=== PATIENT | male | born 1945 | race Caucasian/White ===

== ENCOUNTER 2023-12-05 17:38 | Inpatient (IN) | payer BC ==
--- NOTE | 2023-12-05 19:00 | ED ---
Recheck HPI - General Chief Complaint: Recheck/Abnormal Lab/Rx Stated Complaint: Abn Labs Time Seen by Provider: 12/05/23 18:57 Source: patient, RN notes reviewed Mode of arrival: ambulatory Limitations: no limitations - History of Present Illness Initial Comments: 77-year-old male with history of hypertension presenting with abnormal labs/scan. Patient states earlier today done of his abdomen as well as lab work, he is unsure why his PCP ordered this. His BUN was 44 and his creatinine was 5.44. The CT scan revealed distended urinary bladder and bilateral hydronephrosis hydroureter secondary to distended urinary bladder. There were also bilateral renal cysts. They instructed him to come to the ER immediately. He denies any abdominal pain or urinary symptoms. He states he is urinating normally, last was 3 hours ago. - Related Data Home Medications Medication Instructions Recorded Confirmed Dorzolamide-Timol 2.23%/0.68% 1 drop RIGHT EYE BID 12/05/23 12/05/23 [Cosopt] Losartan Potassium [Cozaar] 100 mg PO DAILY 12/05/23 12/05/23 amLODIPine [Norvasc] 10 mg PO DAILY 12/05/23 12/05/23 Allergies Allergy/AdvReac Type Severity Reaction Status Date / Time No Known Allergies Allergy Verified 12/05/23 19:57 Review of Systems ROS Statement: Those systems with pertinent positive or pertinent negative responses have been documented in the HPI. ROS Other: All systems not noted in ROS Statement are negative. Past Medical History Past Medical History: Hypertension Past Surgical History: No Surgical Hx Reported Past Psychological History: No Psychological Hx Reported Smoking Status: Never smoker Past Alcohol Use History: None Reported Past Drug Use History: None Reported General Exam Limitations: no limitations General appearance: alert, in no apparent distress Head exam: Present: atraumatic, normocephalic, normal inspection Eye exam: Present: normal appearance, PERRL, EOMI. Absent: scleral icterus, con junctival injection, periorbital swelling ENT exam: Present: normal exam, mucous membranes moist Neck exam: Present: normal inspection. Absent: tenderness, meningismus, lymphadenopathy Respiratory exam: Present: normal lung sounds bilaterally. Absent: respiratory distress, wheezes, rales, rhonchi, stridor Cardiovascular Exam: Present: regular rate, normal rhythm, normal heart sounds. Absent: systolic murmur, diastolic murmur, rubs, gallop, clicks GI/Abdominal exam: Present: soft, normal bowel sounds. Absent: distended, tenderness, guarding, rebound, rigid Back exam: Present: normal inspection. Absent: CVA tenderness (R), CVA tenderness (L) Neurological exam: Present: alert Psychiatric exam: Present: normal affect, normal mood Skin exam: Present: warm, dry, intact, normal color. Absent: rash Course Vital Signs 12/05/23 17:51 Temperature 97.6 F Pulse Rate 85 Respiratory 18 Rate Blood Pressure 146/85 O2 Sat by Pulse 100 Oximetry Medical Decision Making - Medical Decision Making Was pt. sent in by a medical professional or institution (, PA, MONTESSORI TEACHER, urgent care, hospital, or group home...) When possible be specific @ -Sent by PCP for elevated kidney labs Did you speak to anyone other than the patient for history (EMS, parent, family, police, friend...)? What history was obtained from this source @ -No Did you review nursing and triage notes (agree or disagree)? Why? @ -I reviewed and agree with nursing and triage notes Were old charts reviewed (outside hosp., previous admission, EMS record, old EKG, old radiological studies, urgent care reports/EKG's, group home records)? Report findings @ -CT scan from earlier today reviewed and revealed markedly distended urinary bladder with bilateral hydronephrosis and hydroureter ureter secondary to distended urinary bladder. Enlarged prostate gland. Bilateral renal cysts. S mall gallstone Differential Diagnosis (chest pain, altered mental status, abdominal pain women, abdominal pain men, vaginal bleeding, weakness, fever, dyspnea, syncope, headache, dizziness, GI bleed, back pain, seizure, CVA, palpatations, mental health, musculoskeletal)? @ -Acute renal failure, urinary tract obstruction, dehydration, thrombus, BPH EKG interpreted by me (3pts min.). @ -None X-rays interpreted by me (1pt min.). @ -None done CT interpreted by me (1pt min.). @ -None done U/S interpreted by me (1pt. min.). @ -None done What testing was considered but not performed or refused? (CT, X-rays, U/S, labs)? Why? @ -None What meds were considered but not given or refused? Why? @ -None Did you discuss the management of the patient with other professionals (professionals i.e. , PA, MONTESSORI TEACHER, lab, RT, psych nurse, forensic social worker, ruby on rails web developer, teacher, chief innovation officer, returned case inspector)? Give summary @ -Discussed with Dr. Zhu from [facility] who accepts admission at this time for acute renal failure with consultation to nephrology services Was smoking cessation discussed for >3mins.? @ -No Was critical care preformed (if so, how long)? @ -No Were there social determinants of health that impacted care today? How? (Homelessness, low income, unemployed, alcoholism, drug addiction, transportation, low edu. Level, literacy, decrease access to med. care, fpc, rehab)? @ -No Was there de-escalation of care discussed even if they declined (Discuss DNR or withdrawal of care, Hospice)? DNR status @ -No What co-morbidities impacted this encounter? (DM, HTN, Smoking, COPD, CAD, Cancer, CVA, ARF, Chemo, Hep., AIDS, mental health diagnosis, sleep apnea, morbid obesity)? @ -None Was patient admitted / discharged? Hospital course, mention meds given and route, prescriptions, significant lab abnormalities, going to OR and other pertinent info. @ -Patient was admitted. Patient was seen and evaluated for abnormal labs-by PCP for elevated kidney labs. Patient is currently asymptomatic. Lab work remarkable for elevated BUN of 44, elevated creatinine of 5.44. More catheter was placed. Case discussed with Dr. Pugh from [facility] who accepts admission at this time for acute renal failure with consultation to nephrology. Case discussed with Dr. Russell Undiagnosed new problem with uncertain prognosis? @ -No Drug Therapy requiring intensive monitoring for toxicity (Heparin, Nitro, Insulin, Cardizem)? @ -No Were any procedures done? @ -No Diagnosis/symptom? @ -Acute renal failure Acute, or Chronic, or Acute on Chronic? @ -Acute Uncomplicated (without systemic symptoms) or Complicated (systemic symptoms)? @ -Uncomplicated Side effects of treatment? @ -No Exacerbation, Progression, or Severe Exacerbation? @ -No Poses a threat to life or bodily function? How? (Chest pain, [place], [place], pneumonia, PE, COPD, DKA, ARF, appy, cholecystitis, CVA, Diverticulitis, Homicidal, Suicidal, threat to staff... and all critical care pts) @ -Yes - Lab Data Result diagrams: 12/05/23 19:31 12/05/23 19:31 Lab Results 12/05/23 12/05/23 12/05/23 Range/Units 19:31 19:31 19:31 WBC 7.5 (3.8-10.6) k/uL RBC 3.64 L (4.30-5.90) m/uL Hgb 11.1 L (13.0-17.5) gm/dL Hct 33.2 L (39.0-53.0) % MCV 91.1 (80.0-100.0) fL MCH 30.5 (25.0-35.0) pg MCHC 33.5 (31.0-37.0) g/dL RDW 13.0 (11.5-15.5) % Plt Count 245 (150-450) k/uL MPV 7.5 Neutrophils % 75 % Lymphocytes % 15 % Monocytes % 6 % Eosinophils % 4 % Basophils % 0 % Neutrophils # 5.6 (1.3-7.7) k/uL Lymphocytes # 1.1 (1.0-4.8) k/uL Monocytes # 0.4 (0-1.0) k/uL Eosinophils # 0.3 (0-0.7) k/uL Basophils # 0.0 (0-0.2) k/uL Sodium 141 (137-145) mmol/L Potassium 4.4 (3.5-5.1) mmol/L Chloride 111 H (98-107) mmol/L Carbon Dioxide 20 L (22-30) mmol/L Anion Gap 10 mmol/L BUN 44 H (9-20) mg/dL Creatinine 5.22 H (0.66-1.25) mg/dL Est GFR (CKD-EPI)AfAm 11 (>60 ml/min/1.73 sqM) Est GFR (CKD-EPI)NonAf 10 (>60 ml/min/1.73 sqM) Glucose 111 H (74-99) mg/dL POC Glucose (mg/dL) (70-110) mg/dL POC Glu Software Quality Automation Engineer ID Plasma Lactic Acid Yong 0.8 (0.7-2.0) mmol/L Calcium 9.3 (8.4-10.2) mg/dL Total Bilirubin 0.7 (0.2-1.3) mg/dL AST 22 (17-59) U/L ALT 15 (4-49) U/L Alkaline Phosphatase 75 (38-126) U/L Total Protein 7.3 (6.3-8.2) g/dL Albumin 4.4 (3.5-5.0) g/dL Urine Color Urine Appearance (Clear) Urine pH (5.0-8.0) Ur Specific [place] (1.001-1.035) Urine Protein (Negative) Urine Glucose (UA) (Negative) Urine Ketones (Negative) Urine Blood (Negative) Urine Nitrite (Negative) Urine Bilirubin (Negative) Urine Urobilinogen (<2.0) mg/dL Ur Leukocyte Esterase (Negative) 12/05/23 12/05/23 Range/Units 20:16 21:00 WBC (3.8-10.6) k/uL RBC (4.30-5.90) m/uL Hgb (13.0-17.5) gm/dL Hct (39.0-53.0) % MCV (80.0-100.0) fL MCH (25.0-35.0) pg MCHC (31.0-37.0) g/dL RDW (11.5-15.5) % Plt Count (150-450) k/uL MPV Neutrophils % % Lymphocytes % % Monocytes % % Eosinophils % % Basophils % % Neutrophils # (1.3-7.7) k/uL Lymphocytes # (1.0-4.8) k/uL Monocytes # (0-1.0) k/uL Eosinophils # (0-0.7) k/uL Basophils # (0-0.2) k/uL Sodium (137-145) mmol/L Potassium (3.5-5.1) mmol/L Chloride (98-107) mmol/L Carbon Dioxide (22-30) mmol/L Anion Gap mmol/L BUN (9-20) mg/dL Creatinine (0.66-1.25) mg/dL Est GFR (CKD-EPI)AfAm (>60 ml/min/1.73 sqM) Est GFR (CKD-EPI)NonAf (>60 ml/min/1.73 sqM) Glucose (74-99) mg/dL POC Glucose (mg/dL) 107 (70-110) mg/dL POC Glu Software Quality Automation Engineer ID Richard Delgado Plasma Lactic Acid Yong (0.7-2.0) mmol/L Calcium (8.4-10.2) mg/dL Total Bilirubin (0.2-1.3) mg/dL AST (17-59) U/L ALT (4-49) U/L Alkaline Phosphatase (38-126) U/L Total Protein (6.3-8.2) g/dL Albumin (3.5-5.0) g/dL Urine Color Colorless Urine Appearance Clear (Clear) Urine pH 6.0 (5.0-8.0) Ur Specific [place] 1.009 (1.001-1.035) Urine Protein Negative (Negative) Urine Glucose (UA) Negative (Negative) Urine Ketones Negative (Negative) Urine Blood Negative (Negative) Urine Nitrite Negative (Negative) Urine Bilirubin Negative (Negative) Urine Urobilinogen <2.0 (<2.0) mg/dL Ur Leukocyte Esterase Negative (Negative) Disposition Clinical Impression: Acute renal failure Disposition: ADMITTED IP TO THIS [facility] Time of Disposition: 21:34
[2023-12-05 19:45] LABS: Basophils % (A) 0 %; Eosinophils # (A) 0.3 k/uL (0-0.7); Eosinophils % (A) 4 %; HCT 33.2 % (39.0-53.0); HGB 11.1 gm/dL (13.0-17.5); Lymphocytes # (A) 1.1 k/uL (1.0-4.8); Lymphocytes % (A) 15 %; MCH 30.5 pg (25.0-35.0); MCHC 33.5 g/dL (31.0-37.0); MCV 91.1 fL (80.0-100.0); Mean Platelet Volume 7.5; Monocytes # (A) 0.4 k/uL (0-1.0); Monocytes % (A) 6 %; Neutrophils # (A) 5.6 k/uL (1.3-7.7); Neutrophils % (A) 75 %; Platelet Count 245 k/uL (150-450); RBC 3.64 m/uL (4.30-5.90); WBC 7.5 k/uL (3.8-10.6)
[2023-12-05 19:58] LABS: ALT 15 U/L (4-49); AST 22 U/L (17-59); African American GFR (CKD) 11 (>60 ml/min/1.73 sqM); Albumin 4.4 g/dL (3.5-5.0); Alkaline Phosphatase 75 U/L (38-126); Anion Gap 10 mmol/L; Blood Urea Nitrogen 44 mg/dL (9-20); Calcium 9.3 mg/dL (8.4-10.2); Carbon Dioxide 20 mmol/L (22-30); Chloride 111 mmol/L (98-107); Glucose 111 mg/dL (74-99); Non-African American GFR(CKD) 10 (>60 ml/min/1.73 sqM); Potassium 4.4 mmol/L (3.5-5.1); Sodium 141 mmol/L (137-145); Total Bilirubin 0.7 mg/dL (0.2-1.3); Total Protein 7.3 g/dL (6.3-8.2)
[2023-12-05 20:18] LABS: Glucose,Whole Blood 107 mg/dL (70-110)
[2023-12-05 21:21] LABS: Appearance,Urine Clear (Clear); Bilirubin,Urine Negative (Negative); Blood,Urine Negative (Negative); Color,Urine Colorless; Glucose,Urine (UA) Negative (Negative); Ketones,Urine Negative (Negative); Leukocyte Esterase,Urine Negative (Negative); Nitrite,Urine Negative (Negative); Protein,Urine Negative (Negative); Specific Gravity,Urine 1.009 (1.001-1.035); Urobilinogen,Urine <2.0 mg/dL (<2.0)
[2023-12-05] MEDS ORDERED: NALOXONE 0.4 MG/ML 1 ML VIAL IV PRN (21:29)
[2023-12-06 08:25] LABS: African American GFR (CKD) 13 (>60 ml/min/1.73 sqM); Anion Gap 10 mmol/L; Blood Urea Nitrogen 42 mg/dL (9-20); Calcium 9.4 mg/dL (8.4-10.2); Carbon Dioxide 18 mmol/L (22-30); Chloride 113 mmol/L (98-107); Glucose 105 mg/dL (74-99); Magnesium 1.8 mg/dL (1.6-2.3); Non-African American GFR(CKD) 11 (>60 ml/min/1.73 sqM); Potassium 4.6 mmol/L (3.5-5.1); Sodium 141 mmol/L (137-145)
--- NOTE | 2023-12-06 12:24 | P.NPCON ---
History of Present Illness - Reason for Consult acute renal failure - History of Present Illness Reason for consultation: Acute kidney injury History of present is: Patient is a 77-year-old male seen in renal consultation for acute kidney injury. Unknown baseline renal function. Patient's creatinine on admission was 5.22 and is 4.6 today. Patient states he had blood work done outpatient by his primary care physician and also CAT scan of his abdomen. CAT scan revealed distended urinary bladder and bilateral hydronephrosis. Bilateral renal cysts were also noted. Patient was subsequently advised to go to the hospital. He currently has a More catheter and hematuria is noted. Patient is nonoliguric. Patient has history of hypertension and was maintained on amlodipine and losartan outpatient. Denies history of diabetes. Denies history of coronary artery disease. No fever or chills. No vomiting or diarrhea. No chest pain or shortness of breath. Vital signs are stable. General: No acute distress. HEENT: Head exam is unremarkable. LUNGS: No audible rhonchi or wheezes. HEART: Rate and Rhythm are regular. ABDOMEN: Nontender. EXTREMITITES: No edema. Past Medical History Past Medical History: Hypertension History of Any Multi-Drug Resistant Organisms: None Reported Past Surgical History: No Surgical Hx Reported Past Psychological History: No Psychological Hx Reported Smoking Status: Never smoker Past Alcohol Use History: None Reported Past Drug Use History: None Reported Medications and Allergies Home Medications Medication Instructions Recorded Confirmed Type Dorzolamide-Timol 2.23%/0.68% 1 drop RIGHT EYE BID 12/05/23 12/05/23 History [Cosopt] Losartan Potassium [Cozaar] 100 mg PO DAILY 12/05/23 12/05/23 History amLODIPine [Norvasc] 10 mg PO DAILY 12/05/23 12/05/23 History Allergies Allergy/AdvReac Type Severity Reaction Status Date / Time No Known Allergies Allergy Verified 12/05/23 19:57 Physical Exam Vitals: Vital Signs Temp Pulse Pulse Resp BP BP Pulse Ox 12/06/23 08:43 98 F 89 17 138/80 98 12/06/23 08:23 18 141/82 97 12/06/23 02:00 71 14 129/77 97 12/06/23 00:00 78 18 144/80 12/05/23 22:00 68 16 145/77 99 12/05/23 20:00 70 16 150/81 99 12/05/23 17:51 97.6 F 85 18 146/85 100 Intake and Output 12/05/23 12/06/23 12/06/23 22:59 06:59 14:59 Output Total 2100 Balance -2099 Output: Urine 2100 Other: Voiding Method Indwelling Catheter Weight 77.111 kg 77.111 kg Results - Lab Results Most recent lab results Calcium 9.4 mg/dL (8.4-10.2) 12/06/23 07:32 Magnesium 1.8 mg/dL (1.6-2.3) 12/06/23 07:32 12/05/23 19:31 12/06/23 07:32 Assessment and Plan Plan: Assessment: 1. Acute kidney injury secondary to obstructive uropathy. Renal function improving. Creatinine 4.6 today. 2. Distended urinary bladder with bilateral hydronephrosis. Has More catheter. Urology consulted. 3. Benign hypertension. Stable. 4. Metabolic acidosis secondary to acute kidney injury. Plan: Start normal saline at 75 cc an hour. Add oral bicarb. Maintain More catheter. Add Flomax. Await urology recommendations. Avoid nephrotoxins. Thank you for the consultation. I will continue to follow the patient with you during his hospital stay.
[2023-12-06] MEDS: SODIUM CHLORIDE 0.9% 1,000 ML IV SCH (13:09)
[2023-12-06] MEDS: SODIUM BICARBONATE TAB 650 MG TAB PO SCH (13:10)
[2023-12-06] MEDS: TAMSULOSIN 0.4 MG CAP.ER.24H PO SCH (13:10)
--- NOTE | 2023-12-06 17:04 | P.HPIM ---
History of Present Illness H&P Date: 12/06/23 Chief Complaint: Acute renal failure 77-year-old male with history of hypertension presenting with abnormal labs/scan. Patient states earlier today done of his abdomen as well as lab work, he is unsure why his PCP ordered this. His BUN was 44 and his creatinine was 5.44. The CT scan revealed distended urinary bladder and bilateral hydronephrosis hydroureter secondary to distended urinary bladder. There were also bilateral renal cysts. They instructed him to come to the ER immediately. He denies any abdominal pain or urinary symptoms. He states he is urinating no rmally, last was 3 hours ago. Blood work completed in ED reveals a WBC of 7.5, hemoglobin of 11.1 and platelet count of 245, sodium 141, potassium 4.4, BUNs/creatinine of 40/5.22 and blood glucose of 111, lactic acid of 0.8, UA is unremarkable Review of Systems REVIEW OF SYSTEMS: CONSTITUTIONAL: No fever, no malaise, no fatigue. HEENT: No recent visual problems or hearing problems. Denied any sore throat. CARDIOVASCULAR: No chest pain, orthopnea, PND, no palpitations, no syncope. PULMONARY: No shortness of breath, no cough, no hemoptysis. GASTROINTESTINAL: No diarrhea, no nausea, no vomiting, no abdominal pain. NEUROLOGICAL: No headaches, no weakness, no numbness. HEMATOLOGICAL: Denies any bleeding or petechiae. GENITOURINARY: Denies any burning micturition, frequency, or urgency. MUSCULOSKELETAL/RHEUMATOLOGICAL: Denies any joint pain, swelling, or any muscle pain. ENDOCRINE: Denies any polyuria or polydipsia. The rest of the 14-point review of systems is negative. Past Medical History Past Medical History: Hypertension History of Any Multi-Drug Resistant Organisms: None Reported Past Surgical History: No Surgical Hx Reported Past Psychological History: No Psychological Hx Reported Smoking Status: Never smoker Past Alcohol Use History: None Reported Past Drug Use History: None Reported Medications and Allergies Home Medications Medication Instructions Recorded Confirmed Type Dorzolamide-Timol 2.23%/0.68% 1 drop RIGHT EYE BID 12/05/23 12/05/23 History [Cosopt] Losartan Potassium [Cozaar] 100 mg PO DAILY 12/05/23 12/05/23 History amLODIPine [Norvasc] 10 mg PO DAILY 12/05/23 12/05/23 History Allergies Allergy/AdvReac Type Severity Reaction Status Date / Time No Known Allergies Allergy Verified 12/05/23 19:57 Physical Exam Vitals: Vital Signs Temp Pulse Pulse Resp BP BP Pulse Ox 12/06/23 08:43 98 F 89 17 138/80 98 12/06/23 08:23 18 141/82 97 12/06/23 02:00 71 14 129/77 97 12/06/23 00:00 78 18 144/80 12/05/23 22:00 68 16 145/77 99 12/05/23 20:00 70 16 150/81 99 12/05/23 17:51 97.6 F 85 18 146/85 100 Intake and Output 12/05/23 12/06/23 12/06/23 22:59 06:59 14:59 Output Total 2100 Balance -2100 Output: Urine 2100 Other: Voiding Method Indwelling Catheter Weight 77.111 kg 77.111 kg General appearance: alert, in no apparent distress Head exam: Present: atraumatic, normocephalic, normal inspection Eye exam: Present: normal appearance, PERRL, EOMI. Absent: scleral icterus, conjunctival injection, periorbital swelling ENT exam: Present: normal exam, mucous membranes moist Neck exam: Present: normal inspection. Absent: tenderness, meningismus, lymphadenopathy Respiratory exam: Present: normal lung sounds bilaterally. Absent: respiratory distress, wheezes, rales, rhonchi, stridor Cardiovascular Exam: Present: regular rate, normal rhythm, normal heart sounds. Absent: systolic murmur, diastolic murmur, rubs, gallop, clicks GI/Abdominal exam: Present: soft, normal bowel sounds. Absent: distended, tenderness, guarding, rebound, rigid Back exam: Present: normal inspection. Absent: CVA tenderness (R), CVA tender ness (L) Neurological exam: Present: alert Psychiatric exam: Present: normal affect, normal mood Skin exam: Present: warm, dry, intact, normal color. Absent: rash Results CBC & Chem 7: 12/05/23 19:31 12/06/23 07:32 Labs: Abnormal Lab Results - Last 24 Hours (Table) 12/05/23 12/05/23 12/06/23 Range/Units 19:31 19:31 07:32 RBC 3.64 L (4.30-5.90) m/uL Hgb 11.1 L (13.0-17.5) gm/dL Hct 33.2 L (39.0-53.0) % Chloride 111 H 113 H (98-107) mmol/L Carbon Dioxide 20 L 18 L (22-30) mmol/L BUN 44 H 42 H (9-20) mg/dL Creatinine 5.22 H 4.60 H (0.66-1.25) mg/dL Glucose 111 H 105 H (74-99) mg/dL Thrombosis Risk Factor Assmnt - Choose All That Apply Any of the Below Risk Factors Present?: No Other Risk Factors: Yes Each Risk Factor Represents 3 Points: Age 75 years or older Other congenital or acquired thrombophilia - If yes, enter type in comment: No Thrombosis Risk Factor Assessment Total Risk Factor Score: 3 Thrombosis Risk Factor Assessment Level: Moderate Risk Assessment and Plan Assessment: 1. Acute renal failure secondary to obstructive uropathy --Creatinine at 4.6; patient has a More catheter in place -- Currently placed on IV fluids in form of normal saline at rate of 75 cc an hour; oral bicarb is added; monitor strict HORTENCIA's, daily weights, renal function electrolytes; avoid nephrotoxins and hypotension -Nephrology on board 2. Obstructive uropathy; hematuria -Patient has a More catheter in place draining bloody urine with intermittent clots -Currently not on anticoagulation therapy -Plan is to maintain More catheter and consult urology for further recommendations -Flomax 0.4 mg daily 3. Hypertension; amlodipine 10 mg daily chest pain resume; patient also takes losartan 100 mg daily which will be placed on hold given acute renal injury 4. Hematuria; likely traumatic insertion of More catheter versus other; urology has been consulted DVT prophylaxis; SCDs only given gross hematuria CODE STATUS; full code
[2023-12-06] MEDS: DORZOLAMIDE-TIMOLOL 2.23%/0.68 10ML BTL RIGHT EYE SCH (21:30)
[2023-12-07] MEDS: amLODIPine 10 MG TAB PO SCH (09:15)
[2023-12-07 09:39] LABS: BUN/Creat Ratio 11.26 Ratio (12.00-20.00); Blood Urea Nitrogen 42.8 mg/dL (9.0-27.0); Calcium 8.7 mg/dL (8.7-10.3); Carbon Dioxide 19.3 mmol/L (21.6-31.8); Chloride 109 mmol/L (96-109); Glucose 104 mg/dL (70-110); Magnesium 1.8 mg/dL (1.5-2.4); Potassium 4.3 mmol/L (3.5-5.5); Sodium 140 mmol/L (135-145)
[2023-12-07 09:41] LABS: Basophils # (A) 0.01 X 10*3/uL (0.00-0.10); Basophils % (A) 0.1 %; Eosinophils # (A) 0.13 X 10*3/uL (0.04-0.35); Eosinophils % (A) 1.7 %; HCT 27.9 % (39.6-50.0); HGB 9.4 g/dL (13.0-17.0); Lymphocytes # (A) 1.12 X 10*3/uL (0.90-5.00); Lymphocytes % (A) 14.7 %; MCH 30.4 pg (27.0-32.0); MCHC 33.7 g/dL (32.0-37.0); MCV 90.3 FL (80.0-97.0); Mean Platelet Volume 10.4 FL (9.5-12.2); Monocytes # (A) 0.62 X 10*3/uL (0.20-1.00); Monocytes % (A) 8.1 %; NRBC Per 100 WBC 0 X 10*3/uL (0.00-0.01); Neutrophils # (A) 5.72 X 10*3/uL (1.80-7.70); Platelet Count 199 X 10*3/uL (140-440); RBC 3.09 X 10*6/uL (4.40-5.60); RDW 12.8 % (11.5-14.5); WBC 7.63 X 10*3/uL (4.50-10.00)
--- NOTE | 2023-12-07 12:39 | P.PN ---
Subjective patient is seen for follow-up for acute kidney injury. Mostly obstructive uropathy with indwelling More catheter. Serum creatinine is down to 3.8 from 5.2 on initial admission. Patient wants to go home. He is currently maintained on IV fluids. 24 hour urine output at 1200 mL. Objective - Vital Signs Vital signs: Vital Signs Temp 97.9 F 12/07/23 07:29 Pulse 83 12/07/23 07:29 Resp 16 12/07/23 07:29 BP 146/72 12/07/23 07:29 Pulse Ox 98 12/07/23 07:29 FiO2 Intake & Output 12/06/23 12/07/23 12/07/23 18:59 06:59 18:59 Intake Total 750 Output Total 1200 1200 700 Balance -450 -1200 -700 Weight 77.111 kg Intake: Intake, IV Titration 750 Amount Sodium Chloride 0.9% 1, 750 000 ml @ 75 mls/hr IV . [id number] [facility] Rx#:[id number] Output: Urine 1200 1200 700 Uretheral (More) 1200 Other: Voiding Method Indwelling Catheter Indwelling Catheter Indwelling Catheter - Exam patient is awake, comfortable, no acute distress. Examination of the heart S1 and S2 Examination of the lungs bilateral breath sounds are heard Abdomen is soft nontender Examination lower extremity shows no significant edema ENVIRONMENTAL LAWYER exam grossly intact. - Labs CBC & Chem 7: 12/07/23 05:45 12/07/23 05:45 Labs: Abnormal Lab Results - Last 24 Hours (Table) 12/07/23 12/07/23 Range/Units 05:45 05:45 RBC 3.09 L (4.40-5.60) X 10*6/uL Hgb 9.4 L (13.0-17.0) g/dL Hct 27.9 L (39.6-50.0) % Carbon Dioxide 19.3 L (21.6-31.8) mmol/L BUN 42.8 H (9.0-27.0) mg/dL Creatinine 3.8 H (0.6-1.5) mg/dL Est GFR (CKD-EPI) 16 L (>=60) BUN/Creatinine Ratio 11.26 L (12.00-20.00) Ratio Assessment and Plan Assessment: 1. Acute kidney injury secondary to obstructive uropathy. Renal function improving. Creatinine 3.8 today. 2. Distended urinary bladder with bilateral hydronephrosis. Has More catheter. Urology on consult. 3. Benign hypertension. Stable. 4. Metabolic acidosis secondary to acute kidney injury. Plan: continue IV fluids. Continue with sodium bicarb. Patient can likely be discharged tomorrow.
[2023-12-07] MEDS: TAMSULOSIN 0.4 MG CAP.ER.24H PO SCH (20:02)
--- NOTE | 2023-12-07 21:58 | P.PN ---
Subjective Progress Note Date: 12/07/23 77-year-old male with history of hypertension presenting with abnormal labs/scan. Patient states earlier today done of his abdomen as well as lab work, he is unsure why his PCP ordered this. His BUN was 44 and his creatinine was 5.44. The CT scan revealed distended urinary bladder and bilateral hydrone phrosis hydroureter secondary to distended urinary bladder. There were also bilateral renal cysts. They instructed him to come to the ER immediately. He denies any abdominal pain or urinary symptoms. He states he is urinating normally, last was 3 hours ago. Blood work completed in ED reveals a WBC of 7.5, hemoglobin of 11.1 and platelet count of 245, sodium 141, potassium 4.4, BUNs/creatinine of 40/5.22 and blood glucose of 111, lactic acid of 0.8, UA is unremarkable Objective - Vital Signs Vital signs: Vital Signs Temp 97.9 F 12/07/23 07:29 Pulse 83 12/07/23 07:29 Resp 16 12/07/23 07:29 BP 146/72 12/07/23 07:29 Pulse Ox 98 12/07/23 07:29 FiO2 Intake & Output 12/06/23 12/07/23 12/07/23 18:59 06:59 18:59 Intake Total 750 Output Total 1200 1200 Balance -450 -1200 Weight 77.111 kg Intake: Intake, IV Titration 750 Amount Sodium Chloride 0.9% 1, 750 000 ml @ 75 mls/hr IV . [id number] [facility] Rx#:[id number] Output: Urine 1200 1200 Uretheral (More) 1200 Other: Voiding Method Indwelling Catheter Indwelling Catheter Indwelling Catheter - Exam General appearance: alert, in no apparent distress Head exam: Present: atraumatic, normocephalic, normal inspection Eye exam: Present: normal appearance, PERRL, EOMI. Absent: scleral icterus, conjunctival injection, periorbital swelling ENT exam: Present: normal exam, mucous membranes moist Neck exam: Present: normal inspection. Absent: tenderness, meningismus, lymphadenopathy Respiratory exam: Present: normal lung sounds bilaterally. Absent: respiratory distress, wheezes, rales, rhonchi, stridor Cardiovascular Exam: Present: regular rate, normal rhythm, normal heart sounds. Absent: systolic murmur, diastolic murmur, rubs, gallop, clicks GI/Abdominal exam: Present: soft, normal bowel sounds. Absent: distended, tend erness, guarding, rebound, rigid Back exam: Present: normal inspection. Absent: CVA tenderness (R), CVA tenderness (L) Neurological exam: Present: alert Psychiatric exam: Present: normal affect, normal mood Skin exam: Present: warm, dry, intact, normal color. Absent: rash - Labs CBC & Chem 7: 12/07/23 05:45 12/07/23 05:45 Labs: Abnormal Lab Results - Last 24 Hours (Table) 12/07/23 12/07/23 Range/Units 05:45 05:45 RBC 3.09 L (4.40-5.60) X 10*6/uL Hgb 9.4 L (13.0-17.0) g/dL Hct 27.9 L (39.6-50.0) % Carbon Dioxide 19.3 L (21.6-31.8) mmol/L BUN 42.8 H (9.0-27.0) mg/dL Creatinine 3.8 H (0.6-1.5) mg/dL Est GFR (CKD-EPI) 16 L (>=60) BUN/Creatinine Ratio 11.26 L (12.00-20.00) Ratio Assessment and Plan Assessment: 1. Acute renal failure secondary to obstructive uropathy --Creatinine at 4.6; patient has a More catheter in place -- Currently placed on IV fluids in form of normal saline at rate of 75 cc an hour; oral bicarb is added; monitor strict HORTENCIA's, daily weights, renal function electrolytes; avoid nephrotoxins and hypotension -Nephrology on board 2. Obstructive uropathy; hematuria -Patient has a More catheter in place draining bloody urine with intermittent clots -Currently not on anticoagulation therapy -Plan is to maintain More catheter and consult urology for further recommendations -Flomax 0.4 mg daily 3. Hypertension; amlodipine 10 mg daily chest pain resume; patient also takes losartan 100 mg daily which will be placed on hold given acute renal injury 4. Hematuria; likely traumatic insertion of More catheter versus other; urology has been consulted DVT prophylaxis; SCDs only given gross hematuria CODE STATUS; full code
--- NOTE | 2023-12-07 22:34 | P.GSCN ---
History of Present Illness Consult date: 12/07/23 Reason for Consult: This is a 77-year-old male admitted to the hospital with acute renal failure, his creatinine was at 5.2 on presentation, his baseline is unknown. He u nderwent CT abdomen and pelvis as an outpatient which was done at [facility] that showed evidence of bladder distention with bilateral hydronephrosis. No previous history of urinary retention. No previous history of UTIs or kidney stones. No previous surgeries. At baseline he indicates he voids to completion without any straining dysuria or gross hematuria, though he is a slight vague historian. In the ER bladder scan demonstrated volume of greater than 999 mL, subsequently a More catheter was placed with blood tinged urine, the catheter has been draining since admission without any problems. His creatinine has been trending down but this morning it was 3.8. Review of Systems - Constitutional Denies fever, Denies weight loss - EENT Ears, nose, mouth and throat: Denies dysphagia - Cardiovascular Denies chest pain, Denies shortness of breath - Genitourinary Reports urinary retention, Denies dysuria, Denies flank pain, Denies hematuria - Neurological Denies headaches, Denies syncope Past Medical History Past Medical History: Hypertension History of Any Multi-Drug Resistant Organisms: None Reported Past Surgical History: No Surgical Hx Reported Past Psychological History: No Psychological Hx Reported Smoking Status: Never smoker Past Alcohol Use History: None Reported Past Drug Use History: None Reported Medications and Allergies Home Medications Medication Instructions Recorded Confirmed Type Dorzolamide-Timol 2.23%/0.68% 1 drop RIGHT EYE BID 12/05/23 12/05/23 History [Cosopt] Losartan Potassium [Cozaar] 100 mg PO DAILY 12/05/23 12/05/23 History amLODIPine [Norvasc] 10 mg PO DAILY 12/05/23 12/05/23 History Allergies Allergy/AdvReac Type Severity Reaction Status Date / Time No Known Allergies Allergy Verified 12/05/23 19:57 Surgical - Exam Vital Signs Temp Pulse Resp BP Pulse Ox 97.6 F 85 18 146/85 100 12/05/23 17:51 12/05/23 17:51 12/05/23 17:51 12/05/23 17:51 12/05/23 17:51 - General no distress, no pain - Eyes normal ocular movement, no pale - ENT normal nares, normal mucosa - Respiratory normal expansion, normal respiratory effort - Abdomen Abdomen: soft, non tender, no distended - Psychiatric oriented to time, oriented to person, oriented to place Results - Labs 12/07/23 05:45 12/07/23 05:45 Abnormal Lab Results - Last 24 Hours (Table) 12/07/23 12/07/23 Range/Units 05:45 05:45 RBC 3.09 L (4.40-5.60) X 10*6/uL Hgb 9.4 L (13.0-17.0) g/dL Hct 27.9 L (39.6-50.0) % Carbon Dioxide 19.3 L (21.6-31.8) mmol/L BUN 42.8 H (9.0-27.0) mg/dL Creatinine 3.8 H (0.6-1.5) mg/dL Est GFR (CKD-EPI) 16 L (>=60) BUN/Creatinine Ratio 11.26 L (12.00-20.00) Ratio Diabetes panel 12/07/23 Range/Units 05:45 Sodium 140 (135-145) mmol/L Potassium 4.3 (3.5-5.5) mmol/L Chloride 109 (96-109) mmol/L Carbon Dioxide 19.3 L (21.6-31.8) mmol/L BUN 42.8 H (9.0-27.0) mg/dL Creatinine 3.8 H (0.6-1.5) mg/dL Glucose 104 (70-110) mg/dL Calcium 8.7 (8.7-10.3) mg/dL Calcium panel 12/07/23 Range/Units 05:45 Calcium 8.7 (8.7-10.3) mg/dL Pituitary panel 12/07/23 Range/Units 05:45 Sodium 140 (135-145) mmol/L Potassium 4.3 (3.5-5.5) mmol/L Chloride 109 (96-109) mmol/L Carbon Dioxide 19.3 L (21.6-31.8) mmol/L BUN 42.8 H (9.0-27.0) mg/dL Creatinine 3.8 H (0.6-1.5) mg/dL Glucose 104 (70-110) mg/dL Calcium 8.7 (8.7-10.3) mg/dL Adrenal panel 12/07/23 Range/Units 05:45 Sodium 140 (135-145) mmol/L Potassium 4.3 (3.5-5.5) mmol/L Chloride 109 (96-109) mmol/L Carbon Dioxide 19.3 L (21.6-31.8) mmol/L BUN 42.8 H (9.0-27.0) mg/dL Creatinine 3.8 H (0.6-1.5) mg/dL Glucose 104 (70-110) mg/dL Calcium 8.7 (8.7-10.3) mg/dL Assessment and Plan Assessment: This is a 77-year-old male admitted to the hospital with acute renal failure, patient had 1 L urinary retention and bilateral hydronephrosis secondary to bladder distention. Creatinine is trending down to 3.8 from 5.22 with More catheter decompression. Hydronephrosis is most likely secondary to bladder distention. At this point recommend continue to trend creatinine, patient will need to keep the More catheter for minimum of 2 weeks, he will be set up for outpatient cystoscopy and urodynamics. Recommend continuing Flomax twice daily for now
[2023-12-08 08:19] VITALS: BP 147/73; PULSE 94; RESP 18; TEMP 97.8
[2023-12-08 09:26] LABS: BUN/Creat Ratio 13.12 Ratio (12.00-20.00); Calcium 9.3 mg/dL (8.7-10.3); Carbon Dioxide 18.6 mmol/L (21.6-31.8); Chloride 109 mmol/L (96-109); Glucose 104 mg/dL (70-110); Potassium 4.1 mmol/L (3.5-5.5); Sodium 143 mmol/L (135-145)
[2023-12-08 09:34] LABS: Basophils # (A) 0.03 X 10*3/uL (0.00-0.10); Basophils % (A) 0.4 %; Eosinophils # (A) 0.11 X 10*3/uL (0.04-0.35); Eosinophils % (A) 1.3 %; HCT 29.2 % (39.6-50.0); HGB 9.9 g/dL (13.0-17.0); Lymphocytes % (A) 10.8 %; MCH 30.5 pg (27.0-32.0); MCHC 33.9 g/dL (32.0-37.0); MCV 89.8 FL (80.0-97.0); Mean Platelet Volume 10.6 FL (9.5-12.2); Monocytes # (A) 0.52 X 10*3/uL (0.20-1.00); Monocytes % (A) 6.2 %; NRBC Per 100 WBC 0 X 10*3/uL (0.00-0.01); Neutrophils # (A) 6.76 X 10*3/uL (1.80-7.70); Neutrophils % (A) 81.1 %; Platelet Count 197 X 10*3/uL (140-440); RBC 3.25 X 10*6/uL (4.40-5.60); RDW 12.6 % (11.5-14.5); WBC 8.34 X 10*3/uL (4.50-10.00)
--- NOTE | 2023-12-08 13:24 | P.PN ---
Subjective patient is seen for follow-up for acute kidney injury. Mostly obstructive uropathy with indwelling More catheter. Serum creatinine is down to 3.2 from 5.2 on initial admission. Patient wants to go home. He is currently maintained on IV fluids. 24 hour urine output at 2200 mL. Objective - Vital Signs Vital signs: Vital Signs Temp 97.8 F 12/08/23 07:45 Pulse 94 12/08/23 07:45 Resp 18 12/08/23 07:45 BP 147/73 12/08/23 07:45 Pulse Ox 99 12/08/23 07:45 FiO2 Intake & Output 12/07/23 12/08/23 12/08/23 18:59 06:59 18:59 Intake Total 900 Output Total 1600 600 700 Balance -700 -600 -700 Intake: Intake, IV Titration 900 Amount Sodium Chloride 0.9% 1, 900 000 ml @ 75 mls/hr IV . [id number] [facility] Rx#:[id number] Output: Urine 1600 600 700 Other: Voiding Method Indwelling Catheter Indwelling Catheter Indwelling Catheter # Bowel Movements 2 - Exam patient is awake, comfortable, no acute distress. 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 - Labs CBC & Chem 7: 12/08/23 05:09 12/08/23 05:09 Labs: Abnormal Lab Results - Last 24 Hours (Table) 12/08/23 12/08/23 Range/Units 05:09 05:09 RBC 3.25 L (4.40-5.60) X 10*6/uL Hgb 9.9 L (13.0-17.0) g/dL Hct 29.2 L (39.6-50.0) % Carbon Dioxide 18.6 L (21.6-31.8) mmol/L Anion Gap 15.40 H (4.00-12.00) mmol/L BUN 42.0 H (9.0-27.0) mg/dL Creatinine 3.2 H (0.6-1.5) mg/dL Est GFR (CKD-EPI) 19 L (>=60) Assessment and Plan Assessment: 1. Acute kidney injury secondary to obstructive uropathy. Renal function improving. Creatinine 3.2 today. 2. Distended urinary bladder with bilateral hydronephrosis. Has More catheter. Urology on consult. 3. Benign hypertension. Stable. 4. Metabolic acidosis secondary to acute kidney injury. Plan: patient can be discharged home. Continue with oral sodium bicarb. Follow-up with urology as outpatient.
== END 2023-12-08 14:59 | disposition home or self-care (01) | DRG 683 ==
LOC: EC 17:38 → 5NMEDONC 22:19
PROVIDERS: ADMIT Internal Medicine; ATTEND Internal Medicine
DX: N17.9 Acute kidney failure, unspecified (principal); E87.20 Acidosis, unspecified; I10 Essential (primary) hypertension; N13.30 Unspecified hydronephrosis; N28.1 Cyst of kidney, acquired; N40.0 Benign prostatic hyperplasia without lower urinary tract symptoms; R31.0 Gross hematuria; Z79.899 Other long term (current) drug therapy
CPT/HCPCS: 36415; 51702; 51798; 80048; 80053; 81003; 83605; 83735; 85025; 99285

== ENCOUNTER → 2023-12-27 | Outpatient (CLI) | payer MEDICARE ==
--- NOTE | 2023-12-27 13:08 | CT ---
EXAMINATION TYPE: CT abdomen pelvis wo con DATE OF EXAM: 12/27/2023 COMPARISON: None HISTORY: 78-year-old male N13.30, unspecified hydronephrosis CT DLP: 459.2 mGycm. Automated exposure control for dose reduction was used. TECHNIQUE: Contiguous axial scanning of the abdomen and pelvis without IV contrast. Coronal and sagit darron reconstructions performed. FINDINGS: Heart normal size with trace anterior basilar pericardial fluid. Prominent hazy dependent atelectasis in the lower lungs. No pleural effusion. Mildly lobulated cyst anterior left liver lobe measuring 1.6 cm. Gallbladder shows no abnormal disten tion but a 8 mm dependent gallstone. Noncontrast assessment of the adrenal glands, spleen with hilar splenule, and pancreas show no gross abnormality. Kidneys show bilateral renal cortical cysts measuring up to 2.4 cm on the right and 4.4 cm on the lef t. There are focal areas of lobulation in the right kidney measuring up to 2.8 cm, probable anatomic aroldo iation, refer to axial image 53. 3 six-month follow-up CT recommended to ensure stable appearance and exclude the possibility of an underlying solid lesion. No hydronephrosis is seen. A centrally locate d cyst may be present on the right measuring up to 1.8 cm. No dilated small bowel, free fluid, or free air. No mesenteric or retroperitoneal lymphadenopathy. Th ere is mild overall stool burden. Mildly redundant sigmoid colon. Possible focal fluid density thickening at the tip of the appendix measuring up to 1.6 cm, axial imag e 108. No acute symptoms here, short interval follow-up in 3 months recommended. Prostate gland markedly enlarged at 6.5 cm. There is pronounced circumferential bladder wall thickeni ng with perivesicular fat stranding and More catheter in place. No abnormal fluid collection in the pelvis or pelvic lymphadenopathy. Bones: Mild anterior wedging at T12 has a chronic appearance. Moderate to advanced hypertrophic facet arthropathy lower lumbar spine. IMPRESSION: 1. A More catheter is in place. No hydronephrosis seen. Bilateral renal cortical cysts measuring up to 4.4 cm. Cortical lobulation on the right measuring up to 2.8 cm probably persistent lobulat ion/anatomic variation. Three-month follow-up CT to ensure a stable appearance and exclude the possib ility of an underlying solid mass. 2. Severe circumferential bladder wall thickening with surrounding fat stranding. Possible combinati on of chronic bladder wall hypertrophy and cystitis. 3. Marked prostatomegaly at 6.5 cm wide. Correlate with symptoms and PSA values. 4. Possible focal 1.6 cm fluid density thickening at the tip of the appendix. If no localizing sympt oms that would suggest an early tip appendicitis, this area should also be reassessed at the 3 month follow-up to exclude pathology such as a small mucinous neoplasm of the appendix.
== END | disposition home or self-care (01) ==
LOC: RADCTMAIN 11:46
PROVIDERS: ATTEND Urology
DX: N13.30 Unspecified hydronephrosis (principal); N28.1 Cyst of kidney, acquired; N40.0 Benign prostatic hyperplasia without lower urinary tract symptoms
CPT/HCPCS: 74176

== ENCOUNTER 2024-02-13 05:34 | Day surgery (SDC) | payer MEDICARE ==
--- NOTE | 2024-02-11 09:15 | P.HPIHPCON ---
History of Present Illness H&P Date: 02/11/24 Chief Complaint: BPH This is a 78-year-old male with history of urinary retention secondary to 140 g prostate, has failed multiple trial voids. Discussed with him the option given the size of the prostate over robotic simple prostatectomy versus HoLEP, risk- benefit of each approach were discussed in detail, he agreed to proceed with a robotic simple prostatectomy, aware of the risk which includes but limited to bleeding infection, injury to the ureter. Aware of the risk of injury to nearby organs, urinary incontinence, erectile dysfunction and persistent retention. Risk of anesthesia was also discussed. He understood all the risk and agreed to proceed Consent for Procedure: I have explained the operation/procedure to the patient, including the risks, benefits, side effects, alternative therapies (including not receiving the proposed treatment or service), the likelihood of the patient achieving his/her goals, and potential recuperation problems for the procedure/sedation/analgesia, as well as any blood products, if indicated. I also explained to the patient the risks, benefits and side effects of the alternatives, as well as the risks related to not receiving the proposed procedure, care, treatment, or services. Past Medical History Past Medical History: Hypertension History of Any Multi-Drug Resistant Organisms: None Reported Past Surgical History: No Surgical Hx Reported Past Psychological History: No Psychological Hx Reported Smoking Status: Never smoker Past Alcohol Use History: None Reported Past Drug Use History: None Reported Medications and Allergies Home Medications Medication Instructions Recorded Confirmed Type RX: Dorzolamide-Timol 2.23%/0.68% 1 drop RIGHT EYE BID 12/05/23 12/05/23 History [Cosopt] RX: Losartan Potassium [Cozaar] 100 mg PO DAILY 12/05/23 12/05/23 History RX: amLODIPine [Norvasc] 10 mg PO DAILY 12/05/23 12/05/23 History RX: Sodium Bicarbonate Tab 650 mg PO BID #60 tab 12/08/23 Rx RX: Tamsulosin [Flomax] 0.4 mg PO BID #60 cap 12/08/23 Rx Allergies Allergy/AdvReac Type Severity Reaction Status Date / Time No Known Allergies Allergy Verified 12/05/23 19:57 Surgical - Exam - General no distress, no pain - Eyes normal ocular movement, no pale - ENT normal nares, normal mucosa - Respiratory normal expansion, normal respiratory effort - Abdomen Abdomen: soft, non tender - Psychiatric oriented to time, oriented to person, oriented to place Assessment and Plan Assessment: OR for robotic simple prostatectomy
[2024-02-13] MEDS: LACTATED RINGERS 1,000 ML IV SCH (06:44)
[2024-02-13] MEDS: ONDANSETRON 4 MG/2 ML VIAL IVP PRN (06:45)
[2024-02-13] MEDS: DEXAMETHASONE SOD PHOSPHATE 4 MG/ML 1 ML VIAL IVP STA (06:46)
[2024-02-13] MEDS: IV FLUID CONTINUATION 1,000 ML IV ONE ×2 (06:48)
[2024-02-13] MEDS: MIDAZOLAM 2 MG/2 ML VIAL IV ONE (07:06)
[2024-02-13] MEDS: fentaNYL (PF) 50 MCG/ML 2 ML AMP IVP STA (07:16)
[2024-02-13] MEDS: HEPARIN SODIUM,PORCINE 5,000 UNIT/ML 1 ML VIAL SQ PRN (07:20)
[2024-02-13] MEDS ORDERED: fentaNYL (PF) 50 MCG/ML 2 ML AMP ONE (07:45)
[2024-02-13] MEDS ORDERED: SODIUM CHLORIDE 0.9% (PF) 10 ML VIAL ONE (07:45)
[2024-02-13] MEDS ORDERED: NEOSTIGMINE 1 MG/ML 10 ML VIAL ONE (07:45)
[2024-02-13] MEDS ORDERED: HYDROmorphone (PF) 1 MG/ML ONE (07:45)
[2024-02-13] MEDS ORDERED: GLYCOPYRROLATE 0.2 MG/ML 2 ML VIAL ONE (07:45)
[2024-02-13] MEDS ORDERED: PROPOFOL 10 MG/ML 20 ML VIAL IV ONE (07:45)
[2024-02-13] MEDS ORDERED: ROPIVACAINE 5 MG/ML 30 ML VIAL ONE (07:45)
[2024-02-13] MEDS ORDERED: ROCURONIUM 10 MG/ML (5 ML VIAL) IV ONE (07:45)
[2024-02-13] MEDS ORDERED: SUCCINYLCHOLINE CHLORIDE 200 MG/10 ML VIAL IV ONE (07:45)
[2024-02-13] MEDS ORDERED: LIDOCAINE 1% INJ 10MG/ML (20 ML MDV) ONE (07:45)
[2024-02-13] MEDS ORDERED: PHENYLEPHRINE-0.9% NACL SYG 1,000 MCG/10 ML SYRINGE ONE (07:45)
[2024-02-13 07:48] LABS: African American GFR (CKD) 38 (>60 ml/min/1.73 sqM); Anion Gap 9 mmol/L; Blood Urea Nitrogen 21 mg/dL (9-20); Calcium 9.5 mg/dL (8.4-10.2); Carbon Dioxide 22 mmol/L (22-30); Chloride 112 mmol/L (98-107); Glucose 109 mg/dL (74-99); Non-African American GFR(CKD) 33 (>60 ml/min/1.73 sqM); Potassium 3.8 mmol/L (3.5-5.1); Sodium 143 mmol/L (137-145)
[2024-02-13 07:56] LABS: Appearance,Urine Turbid (Clear); Bacteria,Urine Occasional /hpf; Bilirubin,Urine Negative (Negative); Blood,Urine Large (Negative); Budding Yeast,Urine Many /hpf; Color,Urine Light Yellow; Glucose,Urine (UA) Negative (Negative); Ketones,Urine Negative (Negative); Leukocyte Esterase,Urine Large (Negative); Mucus,Urine Rare /hpf; Nitrite,Urine Positive (Negative); PH, Urine 5.5 (5.0-8.0); Protein,Urine Trace (Negative); RBC,Urine 16 /hpf (0-5); Specific Gravity,Urine 1.015 (1.001-1.035); Squamous Epithelial Cell,Urine 1 /hpf (0-4); Urobilinogen,Urine <2.0 mg/dL (<2.0); WBC,Urine 159 /hpf (0-5)
[2024-02-13] MEDS ORDERED: ONDANSETRON 4 MG/2 ML VIAL IVP PRN (07:57)
[2024-02-13] MEDS: BUPIVACAINE (PF) 0.25% 30 ML VIAL SQ ONE (08:00)
[2024-02-13 08:20] LABS: Basophils % (A) 0 %; Eosinophils # (A) 0.2 k/uL (0-0.7); Eosinophils % (A) 3 %; HCT 39.9 % (39.0-53.0); HGB 13.5 gm/dL (13.0-17.5); Lymphocytes # (A) 0.8 k/uL (1.0-4.8); Lymphocytes % (A) 13 %; MCH 31.2 pg (25.0-35.0); MCHC 33.9 g/dL (31.0-37.0); MCV 92.2 fL (80.0-100.0); Mean Platelet Volume 8.4; Monocytes # (A) 0.3 k/uL (0-1.0); Monocytes % (A) 5 %; Neutrophils # (A) 4.6 k/uL (1.3-7.7); Neutrophils % (A) 77 %; Platelet Count 175 k/uL (150-450); RBC 4.33 m/uL (4.30-5.90); RDW 13.3 % (11.5-15.5)
--- NOTE | 2024-02-13 10:58 | P.OP ---
Date of Procedure: 02/13/24 Preoperative Diagnosis: BPH, urinary retention Postoperative Diagnosis: Same Procedure(s) Performed: Robotic assisted laparoscopic simple prostatectomy Implants: None Anesthesia: LYNDA Surgeon: Sylvester Estrada Estimated Blood Loss (ml): 100 Pathology: other (Prostate adenoma) Condition: stable Disposition: PACU Indications for Procedure: This is a 78-year-old male with history of urinary retention secondary to 140 g prostate, has failed multiple trial voids. Discussed with him the option given the size of the prostate over robotic simple prostatectomy versus HoLEP, risk- benefit of each approach were discussed in detail, he agreed to proceed with a robotic simple prostatectomy, aware of the risk which includes but limited to bleeding infection, injury to the ureter. Aware of the risk of injury to nearby organs, urinary incontinence, erectile dysfunction and persistent retention. Risk of anesthesia was also discussed. He understood all the risk and agreed to proceed Description of Procedure: After preoperative antibiotics were started, the patient was taken to the operating room. Anesthesia was induced and the patient was placed in a supine position with adequate padding of the pressure points, shoulders, back, legs and arms. He was then prepped and draped in the standard fashion. A critical pause was performed using two patient identifiers. A 16F saavedra catheter was placed to gravity drainage. A pneumoperitoneum was obtained using a Veress needle, after pneumoperitoneum was obtained a 8 mm camera port was placed. Under direct vision a 8mm robotic ports was placed lateral to each rectus slightly below the camera port. The left iliac fossa 8mm port was placed. The right health education assistant right iliac fossa 12mm port and right paramedian 5mm portwere placed. After the patient was placed in the trendelenberg position, the robot was then docked to the 8mm robotic ports and then each robotic arm and tower was checked in relation to the patient's legs and hands to avoid inadvertent compression. The peritoneal cavity was inspected. Adhesions were taken down along the left lower quadrant An inverted U-shaped incision began laterally to the left medial umbilical ligament and extended high across the midline to the right umbilical ligament. The limbs of the "U" extended to the level of the vasa on both sides. We next developed the preperitoneal space and the space of Retzius. Cautery was used to dissected the bladder away from the prostate, the incision was made in close proximity to the prostate, and incision was extended laterally and at this point the plane between the adenoma and the surgical capsule is identified. Patient did have an enlarged median lobe with intravesical extension, both ureteral orifices were identified and neither was injured during the dissection . The adenoma was dissected off of the capsule by combination of blunt dissection and minimum cautery. dissection was initially started along the anterior surface and posterior surface of adenoma, and this was carried laterally. The dissection was carried to the apex, at this point the urethral- prostatic junction was visualized and the prostate was transected at the junction. Prostate adenoma was placed in an endocatch bag . A 9and 9 inch 3-0 V-Lock suture was used to anastomose the urethra and bladder, starting at the 6:00 posterior position. Mucosa was secured in every stitch, to ensure a mucosa to mucosa anastomosis. The stitch was regularly cinched and the anastomosis tightened. . The 20 Fr Saavedra catheter was advanced, the bladder filled, and the anastomosis was tested. Anastomsis was watertight at 150 mL. balloon was inflated to 10 mL. The capsule was then closed over the bladder using 3 OV lock the robot was undocked. specimen was extracted from the supraumbilical incision. The periumbilical fascia was closed with 1-0-PDS suture in figure of 8 fashion. All ports were closed with a subcuticular 4-0 monocryl and Dermabond. Sponge, instrument, and needle count were correct x 2
[2024-02-13] MEDS ORDERED: HYDROcodone/APAP 5-325MG 1 EACH TAB PO PRN (10:59)
[2024-02-13] MEDS: hydrALAZINE HCL 20 MG/ML 1 ML VIAL IVP STA (11:51)
[2024-02-13 12:53] VITALS: RESP 16
[2024-02-13] MEDS: D5-0.45% NACL WITH KCL 20MEQ/L 1,000 ML IV SCH (13:29)
[2024-02-13] MEDS: LEVOFLOXACIN 500MG-D5W PMX 500 MG in DEXTROSE/WATER 1 100ML.BAG IVPB SCH (13:29)
[2024-02-13] MEDS: DORZOLAMIDE-TIMOLOL 2.23%/0.68 10ML BTL RIGHT EYE SCH (13:29)
[2024-02-13] MEDS: HYDROmorphone 1 MG/ML 1 ML SYRINGE IVP PRN (13:30)
[2024-02-13] MEDS: KETOROLAC 15 MG/ML 1 ML VIAL IVP SCH (13:30)
[2024-02-13] MEDS: HEPARIN SODIUM,PORCINE 5,000 UNIT/ML 1 ML VIAL SQ SCH (17:24)
[2024-02-14 01:12] VITALS: PULSE 72
[2024-02-14] MEDS: amLODIPine 10 MG TAB PO SCH (08:13)
[2024-02-14] MEDS: LOSARTAN 50 MG TAB PO SCH (08:13)
[2024-02-14 10:06] VITALS: BP 165/82; TEMP 98.2
[2024-02-14] MEDS ORDERED: LEVOFLOXACIN 250MG-D5W PMX 250 MG in DEXTROSE/WATER 1 50ML.BAG IVPB SCH (12:00)
--- NOTE | 2024-02-14 12:39 | P.DS ---
Providers Attending physician: Sylvester Estrada MD Primary care physician: Jennifer [facility] Course: This is a 78-year-old male with a history of urinary retention secondary to BPH. Underwent a robotic simple prostatectomy on February 12. Please see op note dated February 12 for surgery details. Patient was admitted to the hospital postoperatively. He was discharged home on postop day #1, at time of discharge he was tolerating a diet, ambulating, pain was controlled Plan - Discharge Summary Discharge Rx Participant: No New Discharge Prescriptions: No Action amLODIPine [Norvasc] 10 mg PO DAILY Dorzolamide-Timol 2.23%/0.68% [Cosopt] 1 drop RIGHT EYE BID Losartan Potassium [Cozaar] 100 mg PO DAILY Discharge Medication List Dorzolamide-Timol 2.23%/0.68% [Cosopt] 1 drop RIGHT EYE BID 12/05/23 [History] Losartan Potassium [Cozaar] 100 mg PO DAILY 12/05/23 [History] amLODIPine [Norvasc] 10 mg PO DAILY 12/05/23 [History] Patient Instructions/Handouts: Acute Kidney Injury (DC), More Catheter Placement and Care (DC) Activity/Diet/Wound Care/Special Instructions: Increase fluid intake It is normal to have blood in the urine Complete your prescribed antibiotics Discharge Disposition: HOME SELF-CARE
--- NOTE | 2024-02-20 07:47 | P.ANPRN ---
Procedure Note - Anesthesia - Nerve Block Performed Bilateral Erector Spinae Single Time Out Performed: Yes ([id number]) Date of Procedure: 02/13/24 Procedure Start Time: : Procedure Stop Time: :11 Location of Patient: PreOp Indication: Acute Post-Operative Pain, Requested by Surgeon Specifically requested for management of pain by : Sylvester Estrada Sedation Type: Sedate with meaningful contact maintained Preparation: Sterile Prep Position: Sitting Catheter: None Needle Types: Pajunk Needle Gauge: 21 (x2) Ultrasound used to visualize needle placement: Yes Ultrasound used to observe medication spread: Yes Injectate: 0.5% Ropivacaine (see comment for volume) (15cc +10cc nacl pf) Blood Aspirated: No Pain Paresthesia on Injection Noted: No Resistance on Injection: Normal Image Stored and Saved: Yes Events: Uneventful and Well Tolerated
== END 2024-02-14 10:32 | disposition home or self-care (01) ==
LOC: OR 05:34 → 5NMEDONC 10:59 → OR 02-14 10:32
PROVIDERS: ATTEND Urology
DX: C61 Malignant neoplasm of prostate (principal); N41.1 Chronic prostatitis; G89.18 Other acute postprocedural pain; N40.1 Benign prostatic hyperplasia with lower urinary tract symptoms; R33.8 Other retention of urine; I10 Essential (primary) hypertension; Z79.899 Other long term (current) drug therapy
CPT/HCPCS: 64999; 80048; 81001; 85025; 86850; 86900; 86901; 87077; 87086; 87186; 88307; 88341; 88342; 88344

== ENCOUNTER → 2024-06-16 | Outpatient (CLI) | payer MEDICARE ==
[2024-06-16 15:18] LABS: BUN/Creat Ratio 9.68 Ratio (12.00-20.00); Blood Urea Nitrogen 18.4 mg/dL (9.0-27.0); Calcium 9.5 mg/dL (8.7-10.3); Chloride 109 mmol/L (96-109); Glucose 106 mg/dL (70-110); Potassium 4.1 mmol/L (3.5-5.5); Prostate Specific Antigen 6.27 ng/mL (0.000-6.500); Sodium 144 mmol/L (135-145)
== END | disposition home or self-care (01) ==
LOC: LABWHC1 09:51
PROVIDERS: ATTEND Family Medicine
DX: C61 Malignant neoplasm of prostate (principal); R94.4 Abnormal results of kidney function studies
CPT/HCPCS: 36415; 80048; 84153

== ENCOUNTER → 2024-07-20 | Outpatient (CLI) | payer MEDICARE ==
--- NOTE | 2024-07-20 09:19 | MR ---
EXAMINATION TYPE: MR Prostate wo/w con DATE OF EXAM: 07/20/2024 8:57 AM COMPARISON: None. CLINICAL INDICATION: Male, 78 years old with history of C61 MALIGNANT NEOPLASM OF PROSTATE; Prostate cancer. TECHNIQUE: Multi-planar, multi-sequence imaging of the pelvis is performed prior to and following the uncomplicated administration of bolus intravenous gadolinium. IV Contrast: 8 mL Gadobutrol Interpretive Criteria: PI-RADS v2.1 SERUM PSA: 06-16-24 = 6.27 03-09-24 = 9.32 SURGICAL PATHOLOGY: Positive biopsy November 13, 2023 FINDINGS: Prostatic dimensions: Postsurgical changes remaining prostate 5.1 x 3.4 x 3.2 cm. "Bullet" Volume: 36.32 (PSA density=0.17 ng/mL/mL) this may be inaccurate given shape of the remainin g prostate tissue. CENTRAL GLAND (Central and Transition Zones/CZ+TZ): Postsurgical changes., No suspicious scintigram lesions there is minimal central gland left. (PI-RADS 2) PERIPHERAL ZONE (PZ): Somewhat diffuse low T2 signal foci DWI ADC signal measuring 27 x 14 x17 mm. This lesion does extend along the peripheral zone capsule. No obvious extra glandular extension at this time. (PI-RADS 5) SEMINAL VESICLES (SV): Symmetric and unremarkable. PERIPROSTATIC TISSUES: Unremarkable. LYMPH NODES: No enlarged pelvic lymph node. REMAINING PELVIS: Bladder wall is within normal limits given distention. Multiple trabeculations and bladder diverticul a largest diverticulum superiorly. No abnormal free or organized intrapelvic fluid collection. No pathologic bowel dilation or mural thickening. No hernia visualized OSSEOUS STRUCTURES: No suspicious osseous abnormality. IMPRESSION: 1. PI-RADS 5 Lesion in the right peripheral zone, mid gland and apex measuring 27 x 14 x 17 mm. 2. Mild BPH, estimated gland volume 36.32 mL. Postsurgical changes present to the prostate gland. 3. No suspicious osseous lesion. No lymphadenopathy. No evidence of prostate adenocarcinoma involving the periprostatic tissues. 4. Trabeculated bladder wall with multiple diverticula. [facility], , 07/20/2024 9:16 AM
== END | disposition home or self-care (01) ==
LOC: RADMRIMAIN 07:59
PROVIDERS: ATTEND Urology
DX: C61 Malignant neoplasm of prostate (principal); N40.0 Benign prostatic hyperplasia without lower urinary tract symptoms; N32.89 Other specified disorders of bladder; K57.90 Diverticulosis of intestine, part unspecified, without perforation or abscess without bleeding
CPT/HCPCS: 72197; A9585

== ENCOUNTER → 2024-09-18 | Outpatient (CLI) | payer MEDICARE ==
[2024-09-18 16:30] LABS: Appearance,Urine Clear (Clear); Bilirubin,Urine Negative (Negative); Blood,Urine Negative (Negative); Color,Urine Yellow (Yellow); Ketones,Urine Negative (Negative); Nitrite,Urine Negative (Negative); PH, Urine 5.5; Urobilinogen,Urine 0.2 E.U./DL
[2024-09-18 16:33] LABS: Basophils # (A) 0.03 X 10*3/uL (0.00-0.10); Basophils % (A) 0.4 %; Eosinophils # (A) 0.13 X 10*3/uL (0.04-0.35); Eosinophils % (A) 1.9 %; HCT 44.1 % (39.6-50.0); HGB 14.6 g/dL (13.0-17.0); Lymphocytes # (A) 1.22 X 10*3/uL (0.90-5.00); Lymphocytes % (A) 17.6 %; MCH 30.2 pg (27.0-32.0); MCHC 33.1 g/dL (32.0-37.0); MCV 91.3 FL (80.0-97.0); Mean Platelet Volume 10.6 FL (9.5-12.2); Monocytes # (A) 0.41 X 10*3/uL (0.20-1.00); Monocytes % (A) 5.9 %; NRBC Per 100 WBC 0 X 10*3/uL (0.00-0.01); Neutrophils % (A) 73.5 %; Platelet Count 193 X 10*3/uL (140-440); RBC 4.83 X 10*6/uL (4.40-5.60); WBC 6.94 X 10*3/uL (4.50-10.00)
[2024-09-18 16:36] LABS: Bacteria,Urine None Seen (None Seen)
[2024-09-18 16:50] LABS: BUN/Creat Ratio 8.88 Ratio (12.00-20.00); Blood Urea Nitrogen 15.1 mg/dL (9.0-27.0); Calcium 9.4 mg/dL (8.7-10.3); Carbon Dioxide 25.6 mmol/L (21.6-31.8); Chloride 108 mmol/L (96-109); Glucose 103 mg/dL (70-110); Potassium 4.3 mmol/L (3.5-5.5); Sodium 142 mmol/L (135-145)
== END | disposition home or self-care (01) ==
LOC: LABPAT 08:28
PROVIDERS: ATTEND Urology
DX: Z01.818 Encounter for other preprocedural examination (principal); C61 Malignant neoplasm of prostate
CPT/HCPCS: 80048; 81001; 85025; 87086

== ENCOUNTER → 2024-10-30 | Outpatient (CLI) | payer MEDICARE ==
[2024-10-30 18:20] LABS: Basophils # (A) 0.03 X 10*3/uL (0.00-0.10); Basophils % (A) 0.4 %; Eosinophils # (A) 0.16 X 10*3/uL (0.04-0.35); HCT 43.8 % (39.6-50.0); HGB 14.6 g/dL (13.0-17.0); Lymphocytes # (A) 1.48 X 10*3/uL (0.90-5.00); Lymphocytes % (A) 18.9 %; MCH 30.7 pg (27.0-32.0); MCHC 33.3 g/dL (32.0-37.0); MCV 92.2 FL (80.0-97.0); Mean Platelet Volume 10.6 FL (9.5-12.2); Monocytes % (A) 6.4 %; NRBC Per 100 WBC 0 X 10*3/uL (0.00-0.01); Neutrophils # (A) 5.62 X 10*3/uL (1.80-7.70); Neutrophils % (A) 71.9 %; Platelet Count 202 X 10*3/uL (140-440); RBC 4.75 X 10*6/uL (4.40-5.60); WBC 7.82 X 10*3/uL (4.50-10.00)
[2024-10-30 18:57] LABS: Calcium 9.2 mg/dL (8.7-10.3); Carbon Dioxide 24.4 mmol/L (21.6-31.8); Chloride 108 mmol/L (96-109); Glucose 124 mg/dL (70-110); Potassium 4.4 mmol/L (3.5-5.5); Sodium 143 mmol/L (135-145)
[2024-10-30 19:03] LABS: Appearance,Urine Clear (Clear); Bilirubin,Urine Negative (Negative); Blood,Urine Negative (Negative); Color,Urine Yellow (Yellow); Ketones,Urine Negative (Negative); Nitrite,Urine Negative (Negative); PH, Urine 5.5; Specific Gravity,Urine 1.019 (1.001-1.030); Urobilinogen,Urine 0.2 E.U./DL
[2024-10-30 19:11] LABS: Bacteria,Urine None Seen (None Seen)
== END | disposition home or self-care (01) ==
LOC: LABPAT 12:44
PROVIDERS: ATTEND Urology
DX: Z01.812 Encounter for preprocedural laboratory examination (principal); C61 Malignant neoplasm of prostate
CPT/HCPCS: 80048; 81001; 85025; 87086

== ENCOUNTER → 2024-12-17 | Outpatient (CLI) | payer MEDICARE ==
--- NOTE | 2024-12-18 09:26 | PE ---
EXAMINATION TYPE: PET CT fusion skull to thigh DATE OF EXAM: 12/17/2024 CLINICAL INDICATION:Male, 79 years old with history of C61 prostate ca; TECHNIQUE: Following the intravenous administration of 6.61 mCi of Ga-68 Illuccix (PSMA), whole bod y images are performed from the skull base to the Mid thigh. Images are reviewed on the computer in the coronal, axial, and sagittal planes. Reconstructed rotating images are created on independent naaya and reviewed on the computer. A non-contrast CT is performed in conjunction with the PET scan. CT DLP: 1434 mGycm, Automated exposure control for dose reduction was used. COMPARISON: CT 12/27/2023, PET/CT None, MRI: 07/20/2024 FINDINGS: Mediastinal SUV mean is 1.99. Hepatic parenchyma SUV mean is 7.7. SKULL BASE AND NECK: No suspicious radiotracer activity. CHEST, MEDIASTINUM, AND HILAR REGION: No suspicious radiotracer activity. ABDOMEN AND PELVIS: Suspicious uptake identified; examples include: There is uptake within the right prostate gland max SUV 9.7 on the right periphery and extending into the peripheral zone involving the apex. Additional focus of uptake is seen just left of midline on t he left posterior peripheral zone MUSCULOSKELETAL STRUCTURES: No suspicious radiotracer activity. OTHER CT: * Circumference of bladder wall thickening. The prostate gland is enlarged measuring up to 5.2 cm. 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 Findings correlate with MRI on t he right. The left focus of uptake is not currently seen on prior MRI. No evidence for metastatic dis ease at this time. [facility] [place], , 12/18/2024 9:24 AM
== END | disposition home or self-care (01) ==
LOC: RADPETMAIN 07:23
PROVIDERS: ATTEND Radiology Radiation Oncology
DX: C61 Malignant neoplasm of prostate (principal)
CPT/HCPCS: 78815; A9596